=== PATIENT | female | born 1995 | race Caucasian/White ===

== ENCOUNTER → 2017-12-31 | Emergency (ER) | payer MEDICAID ==
[~2017-12-31] MED LIST: Sodium Chloride 0.9% 1000 ML 1,000 ML ONE; TYLENOL 325 MG ONE; Zofran 4 MG/2 ML VIAL ONE
--- NOTE | 2017-12-31 22:46 | ERPHSYRPT ---
- History of Present Illness Time Seen by Provider: 12/31/17 22:35 Historian: patient Exam Limitations: no limitations Physician History: Patient is a 22-year-old at early stage complaining of left lower quadrant abdominal pain that is crampy in nature. This has been going on for several weeks area and she's had vaginal bleeding for 3 weeks. Her last menstrual period was at the end of October. She has been seen at [place] [facility] on 2 occasions. The first was December 25 and the second visit was on December 26. I have reviewed the notes from [place] [facility] visit on December 26 and they agree with the patient 's assessment and history. She had a positive test on December 25. She had a OB ultrasound done on the which did not show an intrauterine . It also did not show any embryo in the fallopian tubes. As requested she had an appointment with her OB doctor on Sunday, December 28. She states that she was told this was a threatened spontaneous . She has had normal bowel movements daily. PMH of kidney stones. Timing/Duration: week(s) (3), intermittent, gradual onset Activities at Onset: none Quality: cramping, sharpness Abdominal Pain Onset Location: LLQ Pain Radiation: no radiation Severity of Pain-Max: severe Severity of Pain-Current: mild Modifying Factors: Improves With: nothing. Worsens With: analgesics Associated Symptoms: nausea Previous symptoms: same symptoms as today, different symptoms, recently seen, recently treated Allergies/Adverse Reactions: No Known Drug Allergies Allergy (Verified 12/31/17 22:54) - Review of Systems Constitutional: No Fever, No Chills Eyes: No Symptoms Ears, Nose, & Throat: No Symptoms Respiratory: No Cough, No Dyspnea Cardiac: No Chest Pain, No Edema, No Syncope Abdominal/Gastrointestinal: Abdominal Pain, Nausea Genitourinary Symptoms: , Vaginal Bleeding Musculoskeletal: No Back Pain, No Neck Pain Skin: No Rash Neurological: No Dizziness, No Focal Weakness, No Sensory Changes Psychological: No Symptoms Endocrine: No Symptoms Hematologic/Lymphatic: No Symptoms Immunological/Allergic: No Symptoms All Other Systems: Reviewed and Negative - Nursing Vital Signs Nursing Vital Signs: Initial Vital Signs Temperature 97.8 F 12/31/17 22:18 Pulse Rate 84 12/31/17 22:18 Respiratory Rate 16 12/31/17 22:18 Blood Pressure 121/67 12/31/17 22:18 O2 Sat by Pulse Oximetry 121 H 12/31/17 22:18 Pain Scale Pain Intensity 0 - Physical Exam General Appearance: no apparent distress, alert Eye Exam: PERRL/EOMI, eyes nml inspection Ears, Nose, Throat Exam: normal ENT inspection, pharynx normal, moist mucous membranes Neck Exam: normal inspection, non-tender, supple, full range of motion Respiratory Exam: normal breath sounds, lungs clear, No respiratory distress Cardiovascular Exam: regular rate/rhythm, normal heart sounds Gastrointestinal/Abdomen Exam: tenderness (LLQ) Pelvic Exam: deferred Rectal Exam: not done Back Exam: normal inspection, normal range of motion, No CVA tenderness, No vertebral tenderness Extremity Exam: normal inspection, normal range of motion, pelvis stable Neurologic Exam: alert, oriented x 3, cooperative, normal mood/affect, nml cerebellar function, sensation nml, No motor deficits Skin Exam: normal color, warm, dry SpO2 Interpretation: normal - Radiology Ultrasound Exam OB Ultrasound: tele radiology report, Ectopic (left side per U/S tech.) Ordered Tests: Active Orders 24 hr Category Date Time Status Clean Catch Urine Specimen STAT Care 12/31/17 22:46 Active IV Insertion STAT Care 12/31/17 22:46 Active OB TRANSVAGINAL [US] Stat Exams 12/31/17 00:25 Taken BMP Stat Lab 12/31/17 23:00 Completed CBC W DIFF Stat Lab 12/31/17 23:00 Completed CULTURE,URINE Stat Lab 12/31/17 23:00 Received HCG, Quantitative (Inhouse) Stat Lab 12/31/17 23:00 Completed UA W/ MICROSCOPIC Stat Lab 12/31/17 23:00 Completed Medication Summary Discontinued Medications Generic Name Dose Route Start Last Admin Trade Name Conradq PRN Reason Stop Dose Admin Acetaminophen 975 mg 12/31/17 22:46 12/31/17 23:10 Tylenol 325 Mg PO 12/31/17 22:47 975 mg STAT ONE Administration Acetaminophen Confirm 12/31/17 23:06 Tylenol 325 Mg Administered 12/31/17 23:07 Dose 975 mg .ROUTE .STK-MED ONE Sodium Chloride 1,000 mls @ 999 mls/hr 12/31/17 22:46 01/01/18 00:21 Sodium Chloride 0.9% 1000 Ml IV 12/31/17 23:46 Infused .Q1H1M STA Infusion Sodium Chloride Confirm 12/31/17 23:06 Sodium Chloride 0.9% 1000 Ml Administered 12/31/17 23:07 Dose 1,000 mls @ ud .ROUTE .STK-MED ONE Ondansetron HCl 4 mg 12/31/17 22:46 12/31/17 23:10 Zofran 4 Mg/2 Ml Vial IV 12/31/17 22:47 4 mg STAT ONE Administration Ondansetron HCl Confirm 12/31/17 23:05 Zofran 4 Mg/2 Ml Vial Administered 12/31/17 23:06 Dose 4 mg .ROUTE .STK-MED ONE Lab/Rad Data: Laboratory Result Diagrams 12/31/17 23:00 12/31/17 23:00 Laboratory Results 12/31/17 12/31/17 12/31/17 Range/Units 23:00 23:00 23:00 WBC 9.2 (4.0-10.5) K/mm3 RBC 4.16 (4.1-5.4) M/mm3 Hgb 12.4 (12.0-16.0) gm/dl Hct 36.6 (35-47) % MCV 88.0 (78-100) fl MCH 29.8 (26-32) pg MCHC 33.9 (32-36) g/dl RDW 12.7 (11.5-14.0) % Plt Count 250 (150-450) K/mm3 MPV 8.9 (6-9.5) fl Gran % 65.5 (36.0-66.0) % Eos # (Auto) 0.20 (0-0.5) Absolute Lymphs (auto) 2.28 (1.0-4.6) Absolute Monos (auto) 0.68 (0.0-1.3) Lymphocytes % 24.7 (24.0-44.0) % Monocytes % 7.4 (0.0-12.0) % Eosinophils % 2.2 (0.00-5.0) % Basophils % 0.2 (0.0-0.4) % Absolute Granulocytes 6.05 (1.4-6.9) Basophils # 0.02 (0-0.4) Sodium 141 (137-145) mmol/L Potassium 3.7 (3.5-5.1) mmol/L Chloride 104 (98-107) mmol/L Carbon Dioxide 28 (22-30) mmol/L Anion Gap 12.5 (5-15) MEQ/L BUN 10 (7-17) mg/dL Creatinine 0.76 (0.52-1.04) mg/dL Estimated GFR > 60.0 ML/MIN Glucose 84 (74-106) mg/dL Calcium 9.5 (8.4-10.2) mg/dL Beta HCG, Quant 368.98 mIU/ml Ur Collection Type VOID Urine Color YELLOW (YELLOW) Urine Appearance CLEAR (CLEAR) Urine pH 6.5 (5-6) Ur Specific [place] 1.015 (1.005-1.025) Urine Protein TRACE (Negative) Urine Ketones SMALL (NEGATIVE) Urine Blood 250 (0-5) Abdirahman/ul Urine Nitrite NEGATIVE (NEGATIVE) Urine Bilirubin NEGATIVE (NEGATIVE) Urine Urobilinogen 1 (0-1) mg/dL Ur Leukocyte Esterase NEGATIVE (NEGATIVE) Urine Microscopic RBC 5-10 (0-2) /HPF Urine Microscopic WBC 0-2 (0-5) /HPF Ur Epithelial Cells MODERATE (FEW) /HPF Urine Bacteria FEW (NEGATIVE) /HPF Urine Culture Reflexed YES (NO) Urine Glucose NEGATIVE (NEGATIVE) mg/dL Specimen Received 12/31/17 2300 - Progress Progress: unchanged Counseled pt/family regarding: diagnosis, rad results - Departure Time of Disposition: 00:27 Departure Disposition: Transfer (transfer to [facility] per Dr Ac.) Clinical Impression: Ectopic without intrauterine Condition: Stable Critical Care Time: No Referrals: SIENA ARCHULETA [Primary Care Provider] -
[2017-12-31 23:07] LABS: BASOPHIL % 0.2 % (0.0-0.4); Basophil (Absolute #) 0.02 (0-0.4); Eosinophil % 2.2 % (0.00-5.0); Granulocyte Absolute (ANC) 6.05 (1.4-6.9); Granulocytes % 65.5 % (36.0-66.0); Hematocrit 36.6 % (35-47); Hemoglobin 12.4 gm/dl (12.0-16.0); Lymphocyte (Absolute #) 2.28 (1.0-4.6); Lymphocytes % 24.7 % (24.0-44.0); Mean Corpuscular Hemoglobin 29.8 pg (26-32); Mean Corpuscular Hgb Concent. 33.9 g/dl (32-36); Mean Platelet Volume 8.9 fl (6-9.5); Monocyte (Absolute #) 0.68 (0.0-1.3); Monocytes % 7.4 % (0.0-12.0); Platelet Count 250 K/mm3 (150-450); Red Blood Count 4.16 M/mm3 (4.1-5.4); Red Cell Distribution Width 12.7 % (11.5-14.0); White Blood Count 9.2 K/mm3 (4.0-10.5)
[2017-12-31] MEDS: Zofran 4 MG/2 ML VIAL IV ONE (23:10)
[2017-12-31] MEDS: TYLENOL 325 MG PO ONE (23:10)
[2017-12-31] MEDS: Sodium Chloride 0.9% 1000 ML 1,000 ML IV STA (23:10)
[2017-12-31 23:25] LABS: ANION GAP 12.5 MEQ/L (5-15); BLOOD UREA NITROGEN 10 mg/dL (7-17); CHLORIDE 104 mmol/L (98-107); Calcium 9.5 mg/dL (8.4-10.2); Carbon Dioxide 28 mmol/L (22-30); Creatinine 1 0.76 mg/dL (0.52-1.04); Glucose 84 mg/dL (74-106); Potassium 3.7 mmol/L (3.5-5.1); SODIUM 141 mmol/L (137-145)
[2017-12-31 23:29] LABS: Appearance CLEAR (CLEAR); Bilirubin NEGATIVE (NEGATIVE); Blood 250 Ery/ul (0-5); Glucose NEGATIVE (NEGATIVE); Ketones SMALL (NEGATIVE); Leukocyte Esterase NEGATIVE (NEGATIVE); Nitrite NEGATIVE (NEGATIVE); Ph 6.5 (5-6); Protein,Urine Dip TRACE (Negative); Specific Gravity 1.015 (1.005-1.025); Urobilinogen 1 mg/dL (0-1)
[2017-12-31 23:30] LABS: Bacteria FEW /HPF (NEGATIVE); Epithelial Cells MODERATE /HPF (FEW); WBC 0-2 /HPF (0-5)
[2017-12-31 23:42] LABS: HCG, Quantitative (Inhouse) 368.98 mIU/ml
[2018-01-01 00:28] VITALS: BP 95/68; PULSE 90; O2SAT 100
[2018-01-01] MEDS: Sodium Chloride 0.9% 1000 ML 1,000 ML IV SCH (00:55)
--- NOTE | 2018-01-01 08:45 | XRAY ---
Indication: Lower pelvic pain. Bleeding. Two-dimensional transvaginal early OB ultrasound performed. Comparison: None Uterus is anteverted measuring 7.2 x 4.0 x 3.5 cm. Myometrium homogeneous. Endometrial stripe measures 4.9 mm. No endometrial cavity mass. Tiny sliver of fluid in the lower uterine segment. Right ovary measures 4.2 x 2.0 x 2.4 cm and the left measures 4.1 x 2.5 x 4.1 cm. Normal color perfusion and follicular cysts bilaterally. There is a 4.1 x 2.3 cm left adnexa heterogeneous echogenic mass. Job Compositor notes patient very tender over this area. Small cul-de-sac free fluid. Impression: Indeterminate left adnexa heterogeneous echogenic mass with small free fluid. CT using IV and enteric contrast may yield further information. Remaining transvaginal pelvic sonogram is negative. Comment: Preliminary report was given.
== END | disposition short-term general hospital (02) ==
LOC: ED 21:54 → EDSEX 21:54
DX: O00.90 Unspecified ectopic pregnancy without intrauterine pregnancy (principal)
CPT/HCPCS: 36000; 36415; 76817; 80048; 81000; 84702; 85025; 87086; 96360; 96361; 96374; 99284; J2405; A9270-GY

== ENCOUNTER 2023-09-27 17:58 | Emergency (ER) | payer MEDICAID ==
[2023-09-27 18:30] VITALS: TEMP 97.6
[2023-09-27 18:47] LABS: Absolute Neutrophil Ct (ANC) 6.92 x10^3/uL (1.4-6.9); BASOPHIL % 0.3 % (0.0-0.4); Basophil (Absolute #) 0.03 x10^3/uL (0-0.4); Eosinophil % 1.2 % (0.00-5.0); Eosinophil (Absolute #) 0.11 x10^3/uL (0-0.5); Hematocrit 37.9 % (35-47); Hemoglobin 12.7 g/dL (12.0-16.0); IMMATURE GRAN # 0.03 x10^3u/L (0.00-0.03); IMMATURE GRAN % 0.3 % (0.00-0.4); Lymphocytes % 17.2 % (24.0-44.0); Mean Cell Volume 89.4 fL (78-100); Mean Corpuscular Hgb Concent. 33.5 g/dL (32-36); Mean Platelet Volume 8.8 fL (7.5-11.0); Monocyte (Absolute #) 0.59 x10^3/uL (0.0-1.3); Monocytes % 6.4 % (0.0-12.0); Neutrophil % 74.6 % (36.0-66.0); Platelet Count 250 x10^3/uL (150-450); Red Blood Count 4.24 x10^6/uL (4.1-5.4); Red Cell Distribution Width 12.3 % (11.5-14.0); White Blood Count 9.3 x10^3/uL (4.0-10.5)
[2023-09-27 19:09] LABS: ADD URINE CULTURE? NO (NO); Appearance Clear (Clear); Bacteria Rare /HPF (None Seen); Bilirubin Negative (Negative); Blood Negative (Negative); Epithelial Cells Rare /HPF (None Seen); Glucose, Urine Negative (Negative); Hyaline Casts NONE SEEN /LPF (0-2); Ketones Negative (Negative); Leukocyte Esterase Negative (Negative); Nitrite Negative (Negative); Ph 7.5 (4.6-8.0); Protein,Urine Dip Negative (Negative); RBC 0-2 /HPF (0-5); Specific Gravity 1.015 (1.005-1.030)
[2023-09-27 19:10] LABS: ACETAMINOPHEN < 10 ug/ml (10-30); ALBUMIN 4.5 g/dL (3.5-5.0); ALKALINE PHOSPHATASE 83 U/L (38-126); BLOOD UREA NITROGEN 11 mg/dL (7-17); CHLORIDE 104 mmol/L (98-107); Calcium 9.3 mg/dL (8.4-10.2); Carbon Dioxide 27 mmol/L (22-30); Creatinine 1 0.65 mg/dL (0.52-1.04); EST GLOMERULAR FILTRATION RATE 124.5 ML/MIN; ETHYL ALCOHOL < 10 mg/dL (0-10); Glucose 91 mg/dL (74-106); SALICYLATE < 1.0 mg/dL (2-20); SGOT/AST 21 U/L (14-36); SGPT/ALT 28 U/L (0-35); SODIUM 137 mmol/L (137-145); Total Protein 7.4 g/dL (6.3-8.2)
[2023-09-27 19:22] LABS: HCG SERUM TEST NEGATIVE (NEGATIVE)
[2023-09-27 19:23] LABS: Amphetamine,Urine NEGATIVE (NEGATIVE); Barbiturate,Urine NEGATIVE (NEGATIVE); Benzodiazepine,Urine POSITIVE (NEGATIVE); Cocaine,Urine NEGATIVE (NEGATIVE); Methadone,Urine NEGATIVE (NEGATIVE); Opiate,Urine NEGATIVE (NEGATIVE); PCP,Urine NEGATIVE (NEGATIVE); THC,Urine NEGATIVE (NEGATIVE)
[2023-09-27 19:31] LABS: INFLUENZA A NEGATIVE (NEGATIVE); INFLUENZA B NEGATIVE (NEGATIVE); RESPIRATORY SYNCTIAL VIRUS NEGATIVE (NEGATIVE); SARS-CoV-2 Xpert Express NEGATIVE (NEGATIVE)
--- NOTE | 2023-09-27 19:33 | ERPHSYRPT ---
- History of Present Illness Time Seen by Provider: 09/27/23 18:45 Source: patient Exam Limitations: no limitations Patient Subjective Stated Complaint: pt here for depressiona and suicidal ideations, she states has no plan but is afraid to stay at home she is afraid she will hurt herself. she states she is under stress due to new job, money. Triage Nursing Assessment: pt alert, cryfull and times, walked in by self, skin w/d/p, resp easy, has self mutilation shaffer to left arm, no edema noted, moves all ext well, shes states she never feels like she is enough even though she has a great and step children Physician History: This is a 27-year-old white female patient who presents to the emergency department and desires help because she is feeling suicidal and depressed. She is on psychiatric medications. She often feels this way. However, her symptoms have been worsening the last couple days. Yesterday she cut her self multiple times in her left forearm. Patient was concerned that if she did not come in for help today she might do something. That something she thinks would be an overdose of medication. Patient states that she just wants to go to sleep and not wake up. Patient states that she just feels like she is not enough. She has a loving and great stepchildren. Patient denies any alcohol or illicit drug use prior to arrival to the emergency department today. Patient did call [facility] earlier today and she was unable to obtain an outpatient appointment until the end of October 2023. Patient denies headache. Patient denies chest pain. Patient denies abdominal pain. She has had no nausea vomiting or diarrhea symptoms. Timing/Duration: worse Severity of Symptoms-Max: moderate Severity of Symptoms-Current: moderate Context related to: other (Patient states that it is hard to describe.) Suicidal thoughts: specific plan (Overdose on pills) Associated Symptoms: depressed, suicidal ideation Previous symptoms: same symptoms as today Allergies/Adverse Reactions: No Known Drug Allergies Allergy (Verified 12/31/17 22:54) Home Medications: ALPRAZolam [Alprazolam] 0.5 mg PO DAILY PRN 09/27/23 [History] Dextroamphetamine/Amphetamine [Adderall 5 mg Tablet] 5 mg PO DAILY 09/27/23 [History] Hx Tetanus, Diphtheria Vaccination/Date Given: No Hx Influenza Vaccination/Date Given: No Hx Pneumococcal Vaccination/Date Given: No Immunizations Up to Date: Yes Travel Risk - International Travel Have you traveled outside of the country in past 3 weeks: No - Coronavirus Screening Are you exhibiting any of the following symptoms?: No Close contact with a COVID-19 positive Pt in past 14-21 Days: No - Vaccine Status Have you recieved a Covid-19 vaccination: No 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 - Past Medical History Pertinent Past Medical History: No Neurological History: No Pertinent History ENT History: No Pertinent History Cardiac History: No Pertinent History Respiratory History: No Pertinent History Endocrine Medical History: No Pertinent History Musculoskeletal History: No Pertinent History GI Medical History: No Pertinent History History: No Pertinent History Psycho-Social History: No Pertinent History Female Reproductive Disorders: No Pertinent History - Past Surgical History Past Surgical History: Yes Female Surgical History: Other Other Surgical History: tubal -took left ovary - Social History Smoking Status: Never smoker Exposure to second hand smoke: No Drug Use: none Patient Lives Alone: No - Female History Hx Last Menstrual Period: sep Hx Now: No - Review of Systems Constitutional: No Symptoms Eyes: No Symptoms Ears, Nose, & Throat: No Symptoms Respiratory: No Symptoms Cardiac: No Symptoms Abdominal/Gastrointestinal: No Symptoms Genitourinary Symptoms: No Symptoms Musculoskeletal: No Symptoms Skin: No Symptoms Neurological: No Symptoms Psychological: Depression, Suicidal Ideations Endocrine: No Symptoms Hematologic/Lymphatic: No Symptoms Immunological/Allergic: No Symptoms All Other Systems: Reviewed and Negative - Nursing Vital Signs Nursing Vital Signs: Initial Vital Signs Temperature 97.6 F 09/27/23 18:29 Pulse Rate 88 09/27/23 18:29 Respiratory Rate 18 09/27/23 18:29 Blood Pressure 130/93 09/27/23 18:29 O2 Sat by Pulse Oximetry 100 09/27/23 18:29 Pain Scale Pain Intensity 0 - Physical Exam General Appearance: no apparent distress, alert, anxiety Eyes, Ears, Nose, Throat Exam: normal ENT inspection, moist mucous membranes Neck Exam: normal inspection, non-tender, supple, full range of motion Respiratory Exam: normal breath sounds, lungs clear, airway intact, No chest tenderness, No respiratory distress Cardiovascular Exam: regular rate/rhythm, normal heart sounds, normal peripheral pulses Gastrointestinal/Abdominal Exam: soft, normal bowel sounds, No tenderness Extremities Exam: normal range of motion, other (To pull superficial scratches left volar forearm) Current Suicidality: has suicide plan Neurological Exam: alert, implementation analyst II-XII nml as tested, oriented x 3, depressed affect Appearance: appropriate appearance, appropriate insight, neat Behavior/Eye Contact/Speech: alert & cooperative, good eye contact, normal spe ech Thoughts/Hallucinations: normal thought pattern, no apparent hallucination Skin Exam: other ("Cutting" shaffer left volar forearm) SpO2 Interpretation: normal SpO2: 100 O2 Delivery: Room Air - Course Nursing assessment & vital signs reviewed: Yes EKG Interpreted by Me: RATE (81), Sinus Rhythm, NORMAL AXIS, NORMAL INTERVALS, NORMAL QRS, NORMAL ST-T, Other (No acute ischemic changes on today's twelve-lead EKG.) Ordered Tests: Active Orders 24 hr Category Date Time Status EKG-ER Only STAT Care 09/27/23 18:28 Active ACETAMINOPHEN Stat Lab 09/27/23 18:45 Completed CBC W DIFF Stat Lab 09/27/23 18:45 Completed CMP Stat Lab 09/27/23 18:45 Completed ETHYL ALCOHOL Stat Lab 09/27/23 18:45 Completed HCG QUALITATIVE, SERUM Stat Lab 09/27/23 18:45 Completed SALICYLATE Stat Lab 09/27/23 18:45 Completed UA W/RFX UR CULTURE Stat Lab 09/27/23 18:59 Completed Urine Triage Profile Stat Lab 09/27/23 18:59 Completed Medication Summary Discontinued Medications Generic Name Dose Route Start Last Admin Trade Name Conradq PRN Reason Stop Dose Admin Alprazolam 0.5 mg 09/27/23 21:22 09/27/23 21:29 Alprazolam 0.5 Mg Tablet PO 09/27/23 21:23 0.5 mg STAT ONE Administration Alprazolam Confirm 09/27/23 21:28 Alprazolam 0.5 Mg Tablet Administered 09/27/23 21:29 Dose 0.5 mg .ROUTE .STK-MED ONE Lab/Rad Data: Laboratory Result Diagrams 09/27/23 18:45 09/27/23 18:45 Laboratory Results 09/27/23 09/27/23 09/27/23 Range/Units 18:59 18:59 18:45 WBC (4.0-10.5) x10^3/uL RBC (4.1-5.4) x10^6/uL Hgb (12.0-16.0) g/dL Hct (35-47) % MCV (78-100) fL MCH (26-32) pg MCHC (32-36) g/dL RDW (11.5-14.0) % Plt Count (150-450) x10^3/uL MPV (7.5-11.0) fL Gran % (36.0-66.0) % Immature Gran % (Auto) (0.00-0.4) % Nucleat RBC Rel Count (0.00-0.1) % Eos # (Auto) (0-0.5) x10^3/uL Immature Gran # (Auto) (0.00-0.03) x10^3u/L Absolute Lymphs (auto) (1.0-4.6) x10^3/uL Absolute Monos (auto) (0.0-1.3) x10^3/uL Absolute Nucleated RBC (0.00-0.01) x10^3u/L Lymphocytes % (24.0-44.0) % Monocytes % (0.0-12.0) % Eosinophils % (0.00-5.0) % Basophils % (0.0-0.4) % Absolute Granulocytes (1.4-6.9) x10^3/uL Basophils # (0-0.4) x10^3/uL Sodium (137-145) mmol/L Potassium (3.5-5.1) mmol/L Chloride (98-107) mmol/L Carbon Dioxide (22-30) mmol/L Anion Gap (5-15) MEQ/L BUN (7-17) mg/dL Creatinine (0.52-1.04) mg/dL Estimated GFR ML/MIN Glucose (74-106) mg/dL Calcium (8.4-10.2) mg/dL Total Bilirubin (0.2-1.3) mg/dL AST (14-36) U/L ALT (0-35) U/L Alkaline Phosphatase (38-126) U/L Serum Total Protein (6.3-8.2) g/dL Albumin (3.5-5.0) g/dL Serum HCG, Qual (NEGATIVE) Urine Color Yellow (Yellow) Urine Appearance Clear (Clear) Urine pH 7.5 (4.6-8.0) Ur Specific [place] 1.015 (1.005-1.030) Urine Protein Negative (Negative) Urine Glucose (UA) Negative (Negative) mg/dL Urine Ketones Negative (Negative) Urine Blood Negative (Negative) Urine Nitrite Negative (Negative) Urine Bilirubin Negative (Negative) Urine Urobilinogen 1.0 A (0.2) mg/dL Ur Leukocyte Esterase Negative (Negative) U Hyaline Cast (Auto) NONE SEEN (0-2) /LPF Urine Microscopic RBC 0-2 (0-5) /HPF Urine Microscopic WBC 6-10 A (0-5) /HPF Ur Epithelial Cells Rare (None Seen) /HPF Urine Bacteria Rare A (None Seen) /HPF Urine Culture Reflexed NO (NO) Salicylates (2-20) mg/dL Urine Opiates Level NEGATIVE (NEGATIVE) Ur Methadone NEGATIVE (NEGATIVE) Acetaminophen (10-30) ug/ml Urine Barbiturates NEGATIVE (NEGATIVE) Ur Phencyclidine (PCP) NEGATIVE (NEGATIVE) Urine Amphetamine NEGATIVE (NEGATIVE) U Benzodiazepine Level POSITIVE A (NEGATIVE) Urine Cocaine NEGATIVE (NEGATIVE) Urine Marijuana (THC) NEGATIVE (NEGATIVE) Ethyl Alcohol (0-10) mg/dL Influenza Type A Ag NEGATIVE (NEGATIVE) Influenza Type B Ag NEGATIVE (NEGATIVE) RSV (PCR) NEGATIVE (NEGATIVE) SARS-CoV-2 (PCR) NEGATIVE (NEGATIVE) 09/27/23 09/27/23 09/27/23 Range/Units 18:45 18:45 18:45 WBC 9.3 (4.0-10.5) x10^3/uL RBC 4.24 (4.1-5.4) x10^6/uL Hgb 12.7 (12.0-16.0) g/dL Hct 37.9 (35-47) % MCV 89.4 (78-100) fL MCH 30.0 (26-32) pg MCHC 33.5 (32-36) g/dL RDW 12.3 (11.5-14.0) % Plt Count 250 (150-450) x10^3/uL MPV 8.8 (7.5-11.0) fL Gran % 74.6 H (36.0-66.0) % Immature Gran % (Auto) 0.3 (0.00-0.4) % Nucleat RBC Rel Count 0.0 (0.00-0.1) % Eos # (Auto) 0.11 (0-0.5) x10^3/uL Immature Gran # (Auto) 0.03 (0.00-0.03) x10^3u/L Absolute Lymphs (auto) 1.60 (1.0-4.6) x10^3/uL Absolute Monos (auto) 0.59 (0.0-1.3) x10^3/uL Absolute Nucleated RBC 0.00 (0.00-0.01) x10^3u/L Lymphocytes % 17.2 L (24.0-44.0) % Monocytes % 6.4 (0.0-12.0) % Eosinophils % 1.2 (0.00-5.0) % Basophils % 0.3 (0.0-0.4) % Absolute Granulocytes 6.92 H (1.4-6.9) x10^3/uL Basophils # 0.03 (0-0.4) x10^3/uL Sodium 137 (137-145) mmol/L Potassium 4.0 (3.5-5.1) mmol/L Chloride 104 (98-107) mmol/L Carbon Dioxide 27 (22-30) mmol/L Anion Gap 11.0 (5-15) MEQ/L BUN 11 (7-17) mg/dL Creatinine 0.65 (0.52-1.04) mg/dL Estimated GFR 124.5 ML/MIN Glucose 91 (74-106) mg/dL Calcium 9.3 (8.4-10.2) mg/dL Total Bilirubin 0.60 (0.2-1.3) mg/dL AST 21 (14-36) U/L ALT 28 (0-35) U/L Alkaline Phosphatase 83 (38-126) U/L Serum Total Protein 7.4 (6.3-8.2) g/dL Albumin 4.5 (3.5-5.0) g/dL Serum HCG, Qual NEGATIVE (NEGATIVE) Urine Color (Yellow) Urine Appearance (Clear) Urine pH (4.6-8.0) Ur Specific [place] (1.005-1.030) Urine Protein (Negative) Urine Glucose (UA) (Negative) mg/dL Urine Ketones (Negative) Urine Blood (Negative) Urine Nitrite (Negative) Urine Bilirubin (Negative) Urine Urobilinogen (0.2) mg/dL Ur Leukocyte Esterase (Negative) U Hyaline Cast (Auto) (0-2) /LPF Urine Microscopic RBC (0-5) /HPF Urine Microscopic WBC (0-5) /HPF Ur Epithelial Cells (None Seen) /HPF Urine Bacteria (None Seen) /HPF Urine Culture Reflexed (NO) Salicylates < 1.0 L (2-20) mg/dL Urine Opiates Level (NEGATIVE) Ur Methadone (NEGATIVE) Acetaminophen < 10 L (10-30) ug/ml Urine Barbiturates (NEGATIVE) Ur Phencyclidine (PCP) (NEGATIVE) Urine Amphetamine (NEGATIVE) U Benzodiazepine Level (NEGATIVE) Urine Cocaine (NEGATIVE) Urine Marijuana (THC) (NEGATIVE) Ethyl Alcohol < 10 (0-10) mg/dL Influenza Type A Ag (NEGATIVE) Influenza Type B Ag (NEGATIVE) RSV (PCR) (NEGATIVE) SARS-CoV-2 (PCR) (NEGATIVE) - Progress Progress: unchanged Progress Note: 09/27/23 19:32 This patient's medical issue is 1 of high complexity. The level of complexity and the workup performed is based on review of the patient's past medical history, review the patient's medication list, review of the patient's drug a llergy list, history of present illness and physical findings on examination. The workup includes twelve-lead EKG, alcohol level, acetaminophen and salicylate levels, urinalysis, test, urine drug screen, CBC and CMP levels. COVID test is also ordered 09/28/23 00:52 I interpreted the patient's laboratory data results and her twelve-lead EKG. Patient has no acute emergent medical issue. Patient was accepted to [facility] psychiatric facility. We will arrange transportation. Dr. Garvey accepted the patient in transfer. Counseled pt/family regarding: lab results, diagnosis, need for follow-up Medical Desision Making - Discussion of managment Care discussed with:: specialist ([facility]) - Diagnostic Testing Diagnostic test were ordered, analyzed, and reviewed by me: Yes - Risk of complications The pt has a high risk of morbidity or mortality based on: Decision regarding hospitilization or escalation of hosp level of care - Departure Departure Disposition: Transfer Clinical Impression: Suicidal ideation Condition: Stable Critical Care Time: No Referrals: GEREMIAS,SIENA R [Primary Care Provider] - Follow up/PCP as directed
[2023-09-27] MEDS ORDERED: xanAX 0.5 MG ONE (21:28)
[2023-09-27] MEDS: xanAX 0.5 MG PO ONE (21:29)
[2023-09-28] MEDS ORDERED: Ativan 1 MG ONE (10:11)
[2023-09-28] MEDS: Ativan 1 MG PO ONE (10:12)
[2023-09-28 11:04] VITALS: BP 115/89; PULSE 78; RESP 16; O2SAT 99
== END 2023-09-28 11:15 | disposition short-term general hospital (02) ==
LOC: ED 17:58
DX: R45.851 Suicidal ideations (principal); Z79.899 Other long term (current) drug therapy
CPT/HCPCS: 0241U; 36415; 80053; 80143; 80179; 80307; 81001; 82077; 84703; 85025; 93005; 99285; A9270-GY

== ENCOUNTER 2024-06-23 01:48 | Emergency (ER) | payer OTHER ==
[2024-06-23 02:02] VITALS: TEMP 98.4
--- NOTE | 2024-06-23 02:22 | ERPHSYRPT ---
- History of Present Illness Source: patient Exam Limitations: no limitations Patient Subjective Stated Complaint: c/o of panic attack Triage Nursing Assessment: Patient brought self to ED with c/o of anxiety. Patient states that she is having a panic attack and it feels like an elephant is sitting on her chest. Patient is currently not taking anxiety medications but is taking medications fo rher personality disorder. Patient states she hasn't had a panic attack in 8 months, but lately has felt unstable and manic. tachycardic, gait steady, skin w/n/d, pt doesn't appear to be in any distress at this time. States she just wanted to come in before symptoms got worse or an onset of suicidal thoughts occurred. Physician History: Patient has a history of Borderline personality disorder. She was on Xanax for anxiety in the past but has not taken it for about 8 months. She is having a panic attack today. Just tightness in her chest. She said she feels like she did with her usual panic attacks. She has not had any other complaints at this time. There is no real acute exacerbating factors that she can tell. She said she just feels panicked. She is not having respiratory difficulties. Allergies/Adverse Reactions: vilazodone [From Viibryd] Adverse Reaction (Verified 06/23/24 02:02) Home Medications: Dextroamphetamine/Amphetamine [Adderall 5 mg Tablet] 5 mg PO DAILY 09/27/23 [History] Desvenlafaxine Succinate [Desvenlafaxine Succinate ER] 15 mg PO DAILY 06/23/24 [History] Metformin HCl [Metformin ER Osmotic] 500 mg PO DAILY 06/23/24 [History] Hx Tetanus, Diphtheria Vaccination/Date Given: No Hx Influenza Vaccination/Date Given: No Hx Pneumococcal Vaccination/Date Given: No Travel Risk - International Travel Have you traveled outside of the country in past 3 weeks: No - Emerging Infectious Disease Are you exhibiting symptoms associated with any current EIDs: No - Past Medical History Pertinent Past Medical History: No Neurological History: No Pertinent History ENT History: No Pertinent History Cardiac History: No Pertinent History Respiratory History: No Pertinent History Endocrine Medical History: No Pertinent History Musculoskeletal History: No Pertinent History GI Medical History: No Pertinent History History: No Pertinent History Psycho-Social History: Anxiety Female Reproductive Disorders: No Pertinent History Other Medical History: BORDERLINE PERSONALITY DISORDER - Past Surgical History Past Surgical History: Yes Female Surgical History: Other Other Surgical History: tubal -took left ovary - Female History Hx Last Menstrual Period: today Hx Now: No - Social History Smoking Status: Never smoker Exposure to second hand smoke: No Drug Use: none Patient Lives Alone: No - Social Determinants of Health Will the patient participate in the screening: Yes Do you worry about a steady place to live?: No Do you have any problems with any of the following?: No known problems In the past 12 months,have you had to go without utilities?: No Transportation Issues: No Has anyone in your support network made you feel unsafe?: No Have you or anyone in your house had to go without enough: No - Review of Systems Constitutional: No Symptoms Eyes: No Symptoms All Other Systems: Reviewed and Negative - Nursing Vital Signs Nursing Vital Signs: Initial Vital Signs Temperature 98.4 F 06/23/24 01:52 Pulse Rate 104 H 06/23/24 01:52 Respiratory Rate 19 06/23/24 01:52 Blood Pressure 148/95 06/23/24 01:52 O2 Sat by Pulse Oximetry 98 06/23/24 01:52 Pain Scale Pain Intensity 0 - Physical Exam General Appearance: no apparent distress Eyes, Ears, Nose, Throat Exam: normal ENT inspection Neurological Exam: alert, normal mood/affect, calm, oriented x 3 Appearance: appropriate appearance, appropriate insight, neat Behavior/Eye Contact/Speech: alert & cooperative, cooperative Thoughts/Hallucinations: normal thought pattern, no apparent hallucination Skin Exam: normal color SpO2: 98 - Course Nursing assessment & vital signs reviewed: Yes - Progress Progress: improved Progress Note: 06/23/24 02:20 Patient was stable throughout stay. What is going to give her some more Xanax and have her follow-up with her counselor. Medical Desision Making - Diagnostic Testing Diagnostic test were ordered, analyzed, and reviewed by me: No - Risk of complications Minimal Risk: Minimal risk of morbidity - Departure Departure Disposition: Home Clinical Impression: Panic attack Condition: Stable Critical Care Time: No Referrals: ALLY HARMON NP [Primary Care Provider] - Follow up/PCP as directed Instructions: Anxiety, Adult (DC)
[2024-06-23] MEDS ORDERED: xanAX 0.5 MG ONE (02:24)
[2024-06-23] MEDS: xanAX 0.5 MG PO ONE (02:24)
[2024-06-23 03:03] VITALS: BP 122/79; PULSE 96; RESP 18; O2SAT 98
== END 2024-06-23 03:37 | disposition home or self-care (01) ==
LOC: ED 01:48
DX: F41.9 Anxiety disorder, unspecified (principal)
CPT/HCPCS: 99282; A9270-GY

== ENCOUNTER 2024-09-20 23:40 | Emergency (ER) | payer OTHER ==
[2024-09-21] MEDS ORDERED: Sterile H2O 10 ml IJ ONE (00:04)
[2024-09-21] MEDS ORDERED: solu-MEDROL ONE (00:04)
[2024-09-21] MEDS ORDERED: Pepcid 20 MG ONE (00:04)
[2024-09-21] MEDS ORDERED: BENADRYL 50 MG/ML ONE (00:04)
[2024-09-21] MEDS: solu-MEDROL 125 MG, Sterile H2O 10 ml 2 ML IM ONE (00:05)
[2024-09-21] MEDS: Pepcid 20 MG PO ONE (00:05)
[2024-09-21] MEDS: BENADRYL 50 MG/ML IM ONE (00:05)
[2024-09-21 00:11] VITALS: RESP 22; TEMP 96.3
--- NOTE | 2024-09-21 00:16 | ERPHSYRPT ---
- History of Present Illness Time Seen by Provider: 09/20/24 23:59 Source: patient Exam Limitations: no limitations Physician History: 28-year-old with history of ADD, anxiety presented in the ER with complains of allergic reaction with burning sensation on the ears, flushing of the face, soreness of throat, burning feeling and swelling of fingertips. Patient reports she put new earrings in her ring today but does report having similar symptoms in the past where she was not able to figure out associated allergen. She did have few shots of fireball prior to arrival which she had it in the past with no symptoms. Denies any difficulty breathing or throat closing sensation. No swelling of tongue/floor of mouth. Not feeling dizzy or lightheaded. Allergies/Adverse Reactions: vilazodone [From StitcherAdsd] Adverse Reaction (Verified 06/23/24 02:02) Home Medications: Dextroamphetamine/Amphetamine [Adderall 5 mg Tablet] 5 mg PO DAILY 09/27/23 [History] Desvenlafaxine Succinate [Desvenlafaxine Succinate ER] 15 mg PO DAILY 06/23/24 [History] Metformin HCl [Metformin ER Osmotic] 500 mg PO DAILY 06/23/24 [History] Hx Tetanus, Diphtheria Vaccination/Date Given: No Hx Influenza Vaccination/Date Given: No Hx Pneumococcal Vaccination/Date Given: No Travel Risk - Emerging Infectious Disease Are you exhibiting symptoms associated with any current EIDs: No - Review of Systems Constitutional: No Symptoms Eyes: No Symptoms Ears, Nose, & Throat: Throat Pain Respiratory: No Symptoms Cardiac: No Symptoms Abdominal/Gastrointestinal: No Symptoms Skin: Rash Neurological: No Symptoms Endocrine: No Symptoms Hematologic/Lymphatic: No Symptoms - Past Medical History Pertinent Past Medical History: No Neurological History: No Pertinent History ENT History: No Pertinent History Cardiac History: No Pertinent History Respiratory History: No Pertinent History Endocrine Medical History: No Pertinent History Musculoskeletal History: No Pertinent History GI Medical History: No Pertinent History History: No Pertinent History Psycho-Social History: Anxiety Female Reproductive Disorders: No Pertinent History Other Medical History: BORDERLINE PERSONALITY DISORDER - Past Surgical History Past Surgical History: Yes Female Surgical History: Other Other Surgical History: tubal -took left ovary - Female History Hx Last Menstrual Period: today - Social History Smoking Status: Never smoker Exposure to second hand smoke: No Drug Use: none Patient Lives Alone: No - Social Determinants of Health Will the patient participate in the screening: Yes Do you worry about a steady place to live?: No In the past 12 months,have you had to go without utilities?: No Transportation Issues: No Has anyone in your support network made you feel unsafe?: No Have you or anyone in your house had to go w/o enough food: No - Physical Exam General Appearance: no apparent distress, alert, anxiety Eye Exam: PERRL/EOMI Ears, Nose, Throat Exam: moist mucous membranes, pharyngeal erythema Neck Exam: normal inspection, non-tender, supple, full range of motion Respiratory Exam: normal breath sounds, lungs clear Cardiovascular Exam: regular rate/rhythm, normal heart sounds Gastrointestinal/Abdomen Exam: soft, normal bowel sounds, No tenderness Extremity Exam: normal inspection, normal range of motion Neurologic Exam: alert, oriented x 3, cooperative Skin Exam: normal color SpO2 Interpretation: normal SpO2: 96 O2 Delivery: Room Air Ordered Tests: Medication Summary Discontinued Medications Generic Name Dose Route Start Last Admin Trade Name Freq PRN Reason Stop Dose Admin Methylprednisolone Sodium 0 mg 09/20/24 23:59 Succinate 125 mg/ Sterile IM 09/21/24 00:00 Water 2 ml STAT ONE Diphenhydramine HCl 50 mg 09/20/24 23:59 Diphenhydramine Hcl 50 Mg/Ml Vial IM 09/21/24 00:00 STAT ONE Famotidine 40 mg 09/20/24 23:59 Famotidine 20 Mg Tablet PO 09/21/24 00:00 STAT ONE - Progress Progress Note: 09/21/24 00:20 28-year-old is evaluated in ER for allergic reaction with flushing of face, external ears with some sore throat. No signs of angioedema. Lungs clear to auscultation. She is given Benadryl Solu-Medrol and Pepcid, Patient later eloped Counseled pt/family regarding: diagnosis Medical Desision Making - Independent Historian Additional History obtained from: Spouse - Risk of complications The pt has a mod risk of morbidity or mortality based on: Need for prescription drug management - Departure Departure Disposition: AMA (dania) Clinical Impression: Allergic reaction Condition: Stable Critical Care Time: No Referrals: ALLY HARMON NP [Primary Care Provider] - Follow up with PCP 1 day Instructions: Allergic reaction - ED discharge instructions
[2024-09-21 00:19] VITALS: BP 134/88; PULSE 99
[2024-09-21 00:21] VITALS: O2SAT 96
== END 2024-09-21 00:27 | disposition left against medical advice (07) ==
LOC: ED 23:40
DX: T78.40XA Allergy, unspecified, initial encounter (principal); R23.2 Flushing; R07.0 Pain in throat; R20.2 Paresthesia of skin; Z79.84 Long term (current) use of oral hypoglycemic drugs; Z79.899 Other long term (current) drug therapy
CPT/HCPCS: 96372; 99283; 99284; J1200; J2919; A9270-GY

== ENCOUNTER 2024-11-30 18:34 | Emergency (ER) | payer OTHER ==
[2024-11-30 18:52] VITALS: TEMP 97.8
--- NOTE | 2024-11-30 19:24 | ERPHSYRPT ---
- History of Present Illness Time Seen by Provider: 11/30/24 18:55 Source: patient, family Exam Limitations: no limitations Patient Subjective Stated Complaint: neck pain that radiates to the bottom of her back and more on the right side Triage Nursing Assessment: Pt brought to the ER by her , tachycardic, rates pain as 8/10, pulses normal, skin n/w/d, pt reports that her hands and feet have been swelling and last week she had 2 days where she didn't urinate, pt has a hx of kidney stones, pt reports that she can't get relief from her back and neck pain and it feels like someone stabbing her, denies chest pain, denies shortness of breath Physician History: This is a 29-year-old white female patient brought to the emergency department by private vehicle accompanied by her and is a patient of nurse practitioner Aleksey with the complaint of severe neck pain that radiates down the right side all the way down to the right hip. She states that this has been going on for 2 days and she cannot get any relief. She has never had this before. She does have a history of nephrolithiasis. She did not fall or have any acute injury. Patient also states that in the last couple days she has not been able to urinate. The pain is described as stabbing pain that is severe. Patient denies shortness of breath. Patient denies chest pain. Patient has a history of suicidal thoughts in the past and a history of panic attacks. Timing/Duration: day(s) (2) Method of Injury: other (No injury) Quality: sharp, stabbing Back Pain Location: C-spine, T-spine, lumbar spine Severity of Pain-Max: moderate Severity of Pain-Current: moderate Modifying Factors: Improves With: nothing Associated Symptoms: problems urinating Previous symptoms: no prior history, no recent treatment Allergies/Adverse Reactions: vilazodone [From [employer]] Adverse Reaction (Verified 11/30/24 18:52) Home Medications: Dextroamphetamine/Amphetamine [Adderall 5 mg Tablet] 5 mg PO DAILY 09/27/23 [History] Hx Tetanus, Diphtheria Vaccination/Date Given: No Hx Influenza Vaccination/Date Given: No Hx Pneumococcal Vaccination/Date Given: No Travel Risk - International Travel Have you traveled outside of the country in past 3 weeks: No - Emerging Infectious Disease Are you exhibiting symptoms associated with any current EIDs: No - Review of Systems Constitutional: No Symptoms Eyes: No Symptoms Ears, Nose, & Throat: No Symptoms Respiratory: No Symptoms Cardiac: No Symptoms Abdominal/Gastrointestinal: No Symptoms Genitourinary Symptoms: Other (Difficulty urinating the last couple of days) Musculoskeletal: Back Pain, Neck Pain Skin: No Symptoms Neurological: No Symptoms Psychological: No Symptoms Endocrine: No Symptoms Hematologic/Lymphatic: No Symptoms Immunological/Allergic: No Symptoms All Other Systems: Reviewed and Negative - Past Medical History Pertinent Past Medical History: Yes Neurological History: No Pertinent History ENT History: No Pertinent History Cardiac History: No Pertinent History Respiratory History: No Pertinent History Endocrine Medical History: No Pertinent History Musculoskeletal History: No Pertinent History GI Medical History: No Pertinent History History: No Pertinent History Psycho-Social History: Anxiety Female Reproductive Disorders: No Pertinent History Other Medical History: BORDERLINE PERSONALITY DISORDER - Past Surgical History Past Surgical History: Yes Female Surgical History: Other Other Surgical History: tubal -took left ovary - Female History Hx Last Menstrual Period: 11/08/2024 Hx Now: No (unsure) - Social History Smoking Status: Current every day smoker Exposure to second hand smoke: Yes Drug Use: none - Social Determinants of Health Will the patient participate in the screening: Yes Do you worry about a steady place to live?: No Do you have any problems with any of the following?: No known problems In the past 12 months,have you had to go without utilities?: No Transportation Issues: No Has anyone in your support network made you feel unsafe?: No Have you or anyone in your house had to go w/o enough food: No - Nursing Vital Signs Nursing Vital Signs: Initial Vital Signs Temperature 97.8 F 11/30/24 18:41 Pulse Rate 99 H 11/30/24 18:41 Blood Pressure 135/98 11/30/24 18:41 O2 Sat by Pulse Oximetry 100 11/30/24 18:41 Pain Scale Pain Intensity [Right 8 Posterior Back] Pain Intensity 5 - Physical Exam General Appearance: no apparent distress, alert, anxiety Eye Exam: PERRL/EOMI, eyes nml inspection Ears, Nose, Throat Exam: normal ENT inspection, moist mucous membranes Neck Exam: normal inspection, non-tender, supple, full range of motion Respiratory Exam: normal breath sounds, lungs clear, airway intact, No chest tenderness, No respiratory distress Cardiovascular Exam: regular rate/rhythm, normal heart sounds, normal peripheral pulses Gastrointestinal Exam: soft, normal bowel sounds, No tenderness Pelvic Exam: not done Rectal Exam: No not done Back Exam: normal inspection, normal range of motion, muscle spasm, No vertebral tenderness (No spinal tenderness all the way from cervical spine all the way to/through L5 to palpation), No point tenderness Extremity Exam: normal inspection, normal range of motion, pelvis stable Neurologic Exam: alert, oriented x 3, 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, 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, nml cerebellar function, nml station & gait, sensation nml Skin Exam: normal color, warm, dry Lymphatic Exam: No adenopathy SpO2 Interpretation: normal SpO2: 99 O2 Delivery: Room Air - Course Nursing assessment & vital signs reviewed: Yes EKG Interpreted by Me: RATE (91), Sinus Rhythm, NORMAL AXIS, NORMAL INTERVALS, NORMAL QRS, Other Ordered Tests: Active Orders 24 hr Category Date Time Status IV Insertion STAT Care 11/30/24 19:24 Active ABDOMEN AND PELVIS W/0 CONTRAS [CT] Stat Exams 11/30/24 19:26 Completed CERVICAL SPINE WO CONTRAST [CT] Stat Exams 11/30/24 19:25 Completed RECONSTRUCTION [CT] Stat Exams 11/30/24 19:27 Completed THORACIC SPINE W/O CONTRAST [CT] Stat Exams 11/30/24 19:25 Completed AMYLASE Stat Lab 11/30/24 19:39 Completed CBC W DIFF Stat Lab 11/30/24 19:39 Completed CMP Stat Lab 11/30/24 19:39 Completed CULTURE,URINE Stat Lab 11/30/24 19:24 Received HCG QUALITATIVE, SERUM Stat Lab 11/30/24 19:39 Completed LIPASE Stat Lab 11/30/24 19:39 Completed UA W/RFX UR CULTURE Stat Lab 11/30/24 19:24 Completed Medication Summary Discontinued Medications Generic Name Dose Route Start Last Admin Trade Name Freq PRN Reason Stop Dose Admin Ceftriaxone Sodium 1 gm in 100 mls @ 200 mls/hr 11/30/24 21:38 11/30/24 22:14 Rocephin 1 Gm / 100 Ml Nacl IV 11/30/24 22:07 Infused STAT ONE Infusion Ceftriaxone Sodium Confirm 11/30/24 21:41 Rocephin 1 Gm / 100 Ml Nacl Administered 11/30/24 21:42 Dose 1 gm in 100 mls @ ud IV .STK-MED ONE Lorazepam 1 mg 11/30/24 20:36 11/30/24 20:50 Lorazepam 2 Mg/1 Ml 2 Mg Vial IV 11/30/24 20:37 1 mg STAT ONE Administration Lorazepam Confirm 11/30/24 20:44 Lorazepam 2 Mg/1 Ml 2 Mg Vial Administered 11/30/24 20:45 Dose 2 mg .ROUTE .STK-MED ONE Morphine Sulfate 2 mg 11/30/24 20:35 11/30/24 20:48 Morphine Sulfate 2 Mg/Ml Inj IV 11/30/24 20:36 2 mg STAT ONE Administration Morphine Sulfate Confirm 11/30/24 20:43 Morphine Sulfate 2 Mg/Ml Inj Administered 11/30/24 20:44 Dose 2 mg .ROUTE .STK-MED ONE Ondansetron HCl 4 mg 11/30/24 20:35 11/30/24 20:47 Ondansetron Hcl 4 Mg/2 Ml Vial IV 11/30/24 20:36 4 mg STAT ONE Administration Ondansetron HCl Confirm 11/30/24 20:43 Ondansetron Hcl 4 Mg/2 Ml Vial Administered 11/30/24 20:44 Dose 4 mg .ROUTE .STK-MED ONE Oxycodone/Acetaminophen 2 tab 11/30/24 22:39 11/30/24 22:51 Oxycodone Hcl/Apap 5 Mg/325 Mg Tablet PO 11/30/24 22:40 2 tab SENT HOME W/ PATIENT STA Administration Oxycodone/Acetaminophen Confirm 11/30/24 22:44 Oxycodone Hcl/Apap 5 Mg/325 Mg Tablet Administered 11/30/24 22:45 Dose 2 tab .ROUTE .STK-MED ONE Lab/Rad Data: Laboratory Result Diagrams 11/30/24 19:39 11/30/24 19:39 Laboratory Results 11/30/24 11/30/24 11/30/24 Range/Units 19:39 19:39 19:39 WBC 10.0 (3.98-10.04) x10^3/uL RBC 4.36 (3.93-5.22) x10^6/uL Hgb 13.6 (11.2-15.7) g/dL Hct 39.5 (34.1-44.9) % MCV 90.6 (79.4-94.8) fL MCH 31.2 (25.6-32.2) pg MCHC 34.4 (32.2-35.5) g/dL RDW 13.8 (11.7-14.4) % Plt Count 268 (182-369) x10^3/uL MPV 8.6 L (9.4-12.3) fL Gran % 71.5 H (34.0-71.1) % Immature Gran % (Auto) 0.3 (0.001-0.429) % Nucleat RBC Rel Count 0.0 (0.00-0.2) % Eos # (Auto) 0.16 (0.04-0.36) x10^3/uL Immature Gran # (Auto) 0.03 (0.001-0.031) x10^3u/L Absolute Lymphs (auto) 1.96 (1.18-3.74) x10^3/uL Absolute Monos (auto) 0.65 (0.24-0.86) x10^3/uL Absolute Nucleated RBC 0.00 (0.00-0.012) x10^3u/L Lymphocytes % 19.7 (19.3-51.7) % Monocytes % 6.5 (4.7-12.5) % Eosinophils % 1.6 (0.7-5.8) % Basophils % 0.4 (0.1-1.2) % Absolute Granulocytes 7.11 H (1.56-6.13) x10^3/uL Basophils # 0.04 (0.01-0.08) x10^3/uL Sodium 139 (135-145) mmol/L Potassium 3.8 (3.5-5.1) mmol/L Chloride 103 (98-107) mmol/L Carbon Dioxide 26 (22-30) mmol/L Anion Gap 14.3 (5-15) MEQ/L BUN 14 (7-17) mg/dL Creatinine 0.61 (0.52-1.04) mg/dL Estimated GFR 124.8 ML/MIN Glucose 97 (74-106) mg/dL Calcium 9.2 (8.4-10.2) mg/dL Total Bilirubin 0.40 (0.2-1.3) mg/dL AST 27 (14-36) U/L ALT 39 H (0-35) U/L Alkaline Phosphatase 87 (38-126) U/L Serum Total Protein 7.5 (6.3-8.2) g/dL Albumin 4.5 (3.5-5.0) g/dL Amylase 83 (30-110) U/L Lipase 363 H (23-300) U/L Serum HCG, Qual NEGATIVE (NEGATIVE) Urine Color (Yellow) Urine Appearance (Clear) Urine pH (4.6-8.0) Ur Specific [place] (1.005-1.030) Urine Protein (Negative) Urine Glucose (UA) (Negative) mg/dL Urine Ketones (Negative) Urine Blood (Negative) Urine Nitrite (Negative) Urine Bilirubin (Negative) Urine Urobilinogen (0.2) mg/dL Ur Leukocyte Esterase (Negative) U Hyaline Cast (Auto) (0-2) /LPF Urine Microscopic RBC (0-5) /HPF Urine Microscopic WBC (0-5) /HPF Ur Epithelial Cells (None Seen) /HPF Urine Bacteria (None Seen) /HPF Urine Culture Reflexed (NO) 11/30/24 Range/Units 19:24 WBC (3.98-10.04) x10^3/uL RBC (3.93-5.22) x10^6/uL Hgb (11.2-15.7) g/dL Hct (34.1-44.9) % MCV (79.4-94.8) fL MCH (25.6-32.2) pg MCHC (32.2-35.5) g/dL RDW (11.7-14.4) % Plt Count (182-369) x10^3/uL MPV (9.4-12.3) fL Gran % (34.0-71.1) % Immature Gran % (Auto) (0.001-0.429) % Nucleat RBC Rel Count (0.00-0.2) % Eos # (Auto) (0.04-0.36) x10^3/uL Immature Gran # (Auto) (0.001-0.031) x10^3u/L Absolute Lymphs (auto) (1.18-3.74) x10^3/uL Absolute Monos (auto) (0.24-0.86) x10^3/uL Absolute Nucleated RBC (0.00-0.012) x10^3u/L Lymphocytes % (19.3-51.7) % Monocytes % (4.7-12.5) % Eosinophils % (0.7-5.8) % Basophils % (0.1-1.2) % Absolute Granulocytes (1.56-6.13) x10^3/uL Basophils # (0.01-0.08) x10^3/uL Sodium (135-145) mmol/L Potassium (3.5-5.1) mmol/L Chloride (98-107) mmol/L Carbon Dioxide (22-30) mmol/L Anion Gap (5-15) MEQ/L BUN (7-17) mg/dL Creatinine (0.52-1.04) mg/dL Estimated GFR ML/MIN Glucose (74-106) mg/dL Calcium (8.4-10.2) mg/dL Total Bilirubin (0.2-1.3) mg/dL AST (14-36) U/L ALT (0-35) U/L Alkaline Phosphatase (38-126) U/L Serum Total Protein (6.3-8.2) g/dL Albumin (3.5-5.0) g/dL Amylase (30-110) U/L Lipase (23-300) U/L Serum HCG, Qual (NEGATIVE) Urine Color Yellow (Yellow) Urine Appearance Cloudy A (Clear) Urine pH 5.5 (4.6-8.0) Ur Specific [place] 1.025 (1.005-1.030) Urine Protein Trace A (Negative) Urine Glucose (UA) Negative (Negative) mg/dL Urine Ketones Trace A (Negative) Urine Blood Negative (Negative) Urine Nitrite Negative (Negative) Urine Bilirubin Negative (Negative) Urine Urobilinogen 0.2 (0.2) mg/dL Ur Leukocyte Esterase Small A (Negative) U Hyaline Cast (Auto) NONE SEEN (0-2) /LPF Urine Microscopic RBC 3-5 (0-5) /HPF Urine Microscopic WBC 11-20 A (0-5) /HPF Ur Epithelial Cells Many A (None Seen) /HPF Urine Bacteria Few A (None Seen) /HPF Urine Culture Reflexed YES (NO) - Progress Progress: improved, pain not gone completely Progress Note: 11/30/24 20:32 My medical decision making and assignment of moderate complexity to this patient's medical issue today is based on review of the patient's past medical history, review the patient's medication list, history present illness and physical findings on examination. The workup in this patient includes placement of intravenous line, CBC, CMP, urinalysis, amylase, lipase, CT scan of the cervical spine, thoracic spine, abdomen pelvis and reconstruction CT of the lumbar spine, all without contrast. Will also do a test. Differential diagnosis includes but is not limited to ureterolithiasis, pyelonephritis, generalized spinal pain, muscle spasms, anxiety about health, acute spinal injury 11/30/24 21:39 I interpreted the patient's laboratory data results. Based on the laboratory data results, the patient has trace dehydration, normal amylase and only slightly elevated lipase, and evidence of a urinary tract infection. 11/30/24 21:52 I reexamined the patient. She is feeling much better after the medications we gave her. I discussed with her and her spouse the lab results. We are still waiting the results of the radiographic studies. 11/30/24 23:[address] scans were interpreted by the radiologist. All of the studies were without contrast. The impressions read: CT scan of the abdomen pelvis shows no acute abdominopelvic pathology. There is no nephrolithiasis. There is no obstructive uropathy. There is no evidence of bowel obstruction. There is no evidence of appendicitis. Reconstruction CT of the lumbar spine shows no acute fracture or dislocation. CT scan of the cervical spine shows no fracture or dislocation. There is evidence of muscle spasm. CT scan of the thoracic spine shows no fracture or dislocation. There is evidence of muscle spasms. Counseled pt/family regarding: lab results, diagnosis, need for follow-up, rad results Medical Desision Making - Independent Historian Additional History obtained from: Spouse - Diagnostic Testing Diagnostic test were ordered, analyzed, and reviewed by me: Yes Radiological Interpretation: Reviewed by me, Teleradiologist Report - Risk of complications The pt has a mod risk of morbidity or mortality based on: Need for prescription drug management - Departure Departure Disposition: Home Clinical Impression: Back pain, Neck pain, Mild dehydration, UTI (urinary tract infection), Muscle spasm of back, Muscle spasms of neck Condition: Stable Critical Care Time: No Referrals: ALLY HARMON NP [Primary Care Provider, [facility]] - Follow up/PCP as directed Additional Instructions: Drink plenty of fluids. Advance your diet slowly. Avoid fatty greasy spicy foods. Take your medication, including your antibiotic, as prescribed. Call your prescribing provider tomorrow, 12/01/2024, to make arrangements for follow- up appointment for further evaluation and management. Prescriptions: Cefdinir 300 mg PO BID #14 cap Orphenadrine Citrate 100 mg [Norflex 100 MG Tablet] 100 mg PO BID #10 tab
[2024-11-30 19:43] LABS: Absolute Neutrophil Ct (ANC) 7.11 x10^3/uL (1.56-6.13); BASOPHIL % 0.4 % (0.1-1.2); Basophil (Absolute #) 0.04 x10^3/uL (0.01-0.08); Eosinophil % 1.6 % (0.7-5.8); Eosinophil (Absolute #) 0.16 x10^3/uL (0.04-0.36); Hematocrit 39.5 % (34.1-44.9); Hemoglobin 13.6 g/dL (11.2-15.7); IMMATURE GRAN # 0.03 x10^3u/L (0.001-0.031); IMMATURE GRAN % 0.3 % (0.001-0.429); Lymphocyte (Absolute #) 1.96 x10^3/uL (1.18-3.74); Lymphocytes % 19.7 % (19.3-51.7); Mean Cell Volume 90.6 fL (79.4-94.8); Mean Corpuscular Hemoglobin 31.2 pg (25.6-32.2); Mean Corpuscular Hgb Concent. 34.4 g/dL (32.2-35.5); Mean Platelet Volume 8.6 fL (9.4-12.3); Monocyte (Absolute #) 0.65 x10^3/uL (0.24-0.86); Monocytes % 6.5 % (4.7-12.5); Neutrophil % 71.5 % (34.0-71.1); Platelet Count 268 x10^3/uL (182-369); Red Blood Count 4.36 x10^6/uL (3.93-5.22); Red Cell Distribution Width 13.8 % (11.7-14.4)
[2024-11-30 19:49] LABS: Appearance Cloudy (Clear); Bacteria Few /HPF (None Seen); Bilirubin Negative (Negative); Blood Negative (Negative); Epithelial Cells Many /HPF (None Seen); Glucose, Urine Negative (Negative); Hyaline Casts NONE SEEN /LPF (0-2); Ketones Trace (Negative); Leukocyte Esterase Small (Negative); Nitrite Negative (Negative); Ph 5.5 (4.6-8.0); Protein,Urine Dip Trace (Negative); Specific Gravity 1.025 (1.005-1.030); Urobilinogen 0.2 mg/dL (0.2)
[2024-11-30 19:55] LABS: ALBUMIN 4.5 g/dL (3.5-5.0); ANION GAP 14.3 MEQ/L (5-15); BILIRUBIN,TOTAL 0.4 mg/dL (0.2-1.3); Calcium 9.2 mg/dL (8.4-10.2); Creatinine 1 0.61 mg/dL (0.52-1.04); EST GLOMERULAR FILTRATION RATE 124.8 ML/MIN; Potassium 3.8 mmol/L (3.5-5.1); Total Protein 7.5 g/dL (6.3-8.2)
[2024-11-30 20:01] LABS: HCG SERUM TEST NEGATIVE (NEGATIVE)
[2024-11-30] MEDS ORDERED: MORPHINE SULFATE 2 MG INJ ONE (20:43)
[2024-11-30] MEDS ORDERED: Zofran 4 MG/2 ML VIAL ONE (20:43)
[2024-11-30] MEDS ORDERED: Ativan 2 MG/1 ML VIAL ONE (20:44)
[2024-11-30] MEDS: Zofran 4 MG/2 ML VIAL IV ONE (20:47)
[2024-11-30] MEDS: MORPHINE SULFATE 2 MG INJ IV ONE (20:48)
[2024-11-30] MEDS: Ativan 2 MG/1 ML VIAL IV ONE (20:50)
[2024-11-30] MEDS ORDERED: ROCEPHIN 1 GM / 100 ML NaCl 1 GM/100 ML IVPB IV ONE (21:41)
[2024-11-30] MEDS: ROCEPHIN 1 GM / 100 ML NaCl 1 GM/100 ML IVPB IV ONE (21:44)
--- NOTE | 2024-11-30 22:13 | XRAY ---
CLINICAL HISTORY: Severe R back pain; not urinating COMPARISON: No prior studies available for comparison. TECHNIQUE: Non-contrast CT of the abdomen and pelvis was performed, with the following protocol: axial images, and reconstructed coronal and sagittal images. No intravenous contrast was administered. One of the following dose reduction techniques was utilized for this exam: Automated exposure control, adjustment of the mA and/or kV according to patient size, and use of iterative reconstruction. FINDINGS: Abdomen: Liver: Normal in size, shape, and density. No focal lesions, cysts, or masses were identified. Gallbladder and Biliary System: The gallbladder is suboptimally distended. No intraluminal radiopaque gallstones identified. Pancreas: The pancreatic head, body, and tail are visualized and appear normal in size and density. No pancreatic masses or calcifications were noted. Spleen: Normal in size, shape, and density. No splenic lesions or masses were identified. Kidneys and Adrenal Glands: Both kidneys are normal in size, shape, and position. Cortical thickness is within normal limits. No renal calculi or hydronephrosis. Adrenal glands are unremarkable. Appendix: The appendix is normal in size without sue-appendiceal fat stranding and without an appendicolith. No evidence of appendiceal abscess or perforation. Pelvis: Urinary Bladder: The Urinary bladder is suboptimally distended with normal contour. No intraluminal lesions. Uterus: Normal in size and contour. No masses or abnormal thickening. Ovaries: No gross abnormalities noted. Vagina: Normal in contour and wall thickness. Cervix: No evidence of mass or abnormal thickening. Peritoneal and Retroperitoneal Structures: Minimal fluid is identified in the cul-de-sac, which may be physiological. No lymphadenopathy was noted. Mild mesenteric hyperemia noted. Bowel: The visualized bowel loops are normal in caliber and appearance. No evidence of bowel obstruction or wall thickening. Slightly prominent submucosal fat of the ascending colon is noted, which is likely due to suboptimal distention Bones and Soft Tissues: Pelvic bones and soft tissues are unremarkable. No fractures or abnormal masses were identified. Small, uncomplicated, fat-containing umbilical hernia is identified. Lower chest: Visualized lung bases are clear. IMPRESSION: 1. No acute abdominopelvic pathology identified. 2. No evidence of nephrolithiasis or obstructive uropathy bilaterally. 3. Mildly prominent submucosal fat of the ascending colon which is likely secondary to suboptimal distention. Clinical correlation is advised. Electronically Signed by: Mickie Sheth MD. (11/30/2024 22:10:21 EDT)
[2024-11-30 22:22] VITALS: RESP 18
--- NOTE | 2024-11-30 22:39 | XRAY ---
CLINICAL HISTORY: Severe back pain COMPARISON: None. TECHNIQUE: CT non-contrast scan of lumbar spine done. Axial images obtained with reformatted coronal and sagittal images and submitted for interpretation. One of the following dose reduction techniques were utilized for this exam: Automated exposure control, adjustment of the mA and/or kV according to patient size, use of iterative reconstruction. FINDINGS: Vertebrae: Normal alignment of the lumbar vertebrae. No fractures, lytic or sclerotic lesions. Normal bone density without evidence of osteopenia or osteoporosis. Intervertebral Discs: Small posterior disc osteophyte complex at L5-S1 level measuring 3 mm indenting ventral thecal sac. Spinal Canal and Neural Foramina: Spinal canal is of normal caliber with no evidence of spinal stenosis. Neural foramina are patent bilaterally at all levels. No evidence of nerve root compression. Facet Joints: Normal appearance of the facet joints. No evidence of facet arthropathy or significant degenerative changes. Soft Tissues: Normal appearance of the paraspinal soft tissues. No abnormal masses, fluid collections, or signs of inflammation. Incidental ill-defined area of sclerosis in left sacral ALA, non-specific. IMPRESSION: No acute fracture or dislocation in lumbar spine Small posterior disc osteophyte complex at L5-S1 level measuring 3 mm indenting ventral thecal sac. Electronically Signed by: Mickie Sheth MD. (11/30/2024 22:35:55 EDT)
[2024-11-30] MEDS ORDERED: PERCOCET TABLET 5/325MG ONE (22:44)
--- NOTE | 2024-11-30 22:47 | XRAY ---
CLINICAL HISTORY: Severe neck and back pain COMPARISON: No previous studies are available for comparison. TECHNIQUE: CT scan of the cervical spine was performed without the administration of intravenous contrast. Contiguous axial images were obtained from the skull base to the upper thoracic spine. Coronal and sagittal reformatted images were also reviewed. One of the following dose reduction techniques was utilized for this exam. Automated exposure control, adjustment of the mA and/or kV according to patient size, and use of iterative reconstruction. FINDINGS: Vertebrae: The vertebral bodies are normal in height, No evidence of acute fracture or dislocation. Straightening of cervical curvature, likely due to muscle spasm Intervertebral Discs: The intervertebral disc spaces are preserved. No evidence of significant disc bulging or herniation. No calcifications or ossifications noted within the discs. Facet Joints: The facet joints are normal without evidence of dislocation, subluxation, or significant degenerative changes. Neural Foramina: The neural foramina are patent bilaterally at all levels. No evidence of foraminal narrowing or nerve root compression. Prevertebral Soft Tissues: The prevertebral soft tissues are normal in thickness without evidence of mass or abnormal fluid collection. Additional Findings: No other significant findings are noted in the visualized soft tissue structures or bony elements. IMPRESSION: No evidence of acute fracture or dislocation. Straightening of cervical curvature, likely due to muscle spasm Electronically Signed by: Mickie Sheth MD. (11/30/2024 22:42:59 EDT)
[2024-11-30] MEDS: PERCOCET TABLET 5/325MG PO STA (22:51)
--- NOTE | 2024-11-30 22:59 | XRAY ---
CLINICAL HISTORY: Severe neck pain COMPARISON: No previous studies are available for comparison. TECHNIQUE: CT scan of the thoracic spine was performed without the administration of intravenous contrast. Contiguous axial images were obtained from the upper thoracic spine to the lower thoracic spine. Coronal and sagittal reformatted images were also reviewed. One of the following dose reduction techniques was utilized for this exam. Automated exposure control, adjustment of the mA and/or kV according to patient size, and use of iterative reconstruction. FINDINGS: Vertebrae: The vertebral bodies are normal in height . No evidence of acute fracture or dislocation. Straightening of thoracic curvature, likely due to muscle spasm. Intervertebral Discs: The intervertebral disc spaces are preserved. No evidence of significant disc bulging or herniation. No calcifications or ossifications noted within the discs. Facet Joints: The facet joints are normal without evidence of dislocation, subluxation, or significant degenerative changes. Neural Foramina: The neural foramina are patent bilaterally at all levels. No evidence of foraminal narrowing or nerve root compression. Paraspinal Soft Tissues: The paraspinal soft tissues are normal in appearance without evidence of mass or abnormal fluid collection. Additional Findings: No other significant findings are noted in the visualized soft tissue structures or bony elements. IMPRESSION: No evidence of acute fracture or dislocation. Straightening of thoracic curvature, likely due to muscle spasm. Electronically Signed by: Mickie Sheth MD. (11/30/2024 22:54:55 EDT)
[2024-11-30 23:05] VITALS: O2SAT 99
[2024-11-30 23:13] VITALS: BP 140/96; PULSE 91
== END 2024-11-30 23:20 | disposition home or self-care (01) ==
LOC: ED 18:34
DX: N39.0 Urinary tract infection, site not specified (principal); M54.9 Dorsalgia, unspecified; M54.2 Cervicalgia; E86.0 Dehydration; M62.830 Muscle spasm of back; R25.2 Cramp and spasm; Z79.899 Other long term (current) drug therapy; Z72.0 Tobacco use
CPT/HCPCS: 36415; 72125; 72128; 74176; 76376; 80053; 81001; 82150; 83690; 84703; 85025; 87086; 96365; 96374; 96375; 99284; J0696; J2060; J2270; J2405; A9270-GY